=== PATIENT | male | born 1990 | race Caucasian/White ===

== ENCOUNTER 2019-10-02 08:38 | Emergency (ER) | payer OTHER, SELFPAY ==
--- NOTE | ~2019-10-02 | CT_ITS ---
EXAMINATION: CT abdomen pelvis wo con DATE: 10/02/2019 09:44 INDICATION: Left flank pain, nausea, vomiting and diarrhea. TECHNIQUE: Computed tomography (CT) of the abdomen and pelvis was performed without intravenous contr ast. Automated exposure control and iterative reconstruction technique were employed. The dose-length product was 310.49 mGy-cm. COMPARISON: None FINDINGS: Lung bases are clear. Heart size is normal. No pericardial or pleural effusion. Small sliding-type hi atal hernia. Liver, gallbladder, spleen, pancreas, bilateral adrenal glands and right kidney are norm al. 2.4 cm low-attenuation left renal cyst. 4 x 2 mm stone at the left ureterovesicular junction with mild left hydroureteronephrosis. Decompressed bladder is unremarkable. Bowels including the appendix are normal. No free intraperitoneal gas or fluid. No pathologically enlarged abdominal or pelvic lym phadenopathy. Bones are unremarkable. IMPRESSION: 1. 4 x 2 mm stone at the left ureterovesicular junction with mild left hydroureteronephrosis. Reviewed, dictated and finalized at location A. IMPRESSION: 1. 4 x 2 mm stone at the left ureterovesicular junction with mild left hydroure teronephrosis.
[2019-10-02 08:54] VITALS: BP 141/108; PULSE 74; RESP 18; TEMP 36.6; O2SAT 100
[2019-10-02] MEDS: ONDANSETRON INJ 4 MG/2 ML VIAL IV PUSH (09:07)
[2019-10-02] MEDS: KETOROLAC 30 MG/ML VIAL (*BKC) IV PUSH (09:07)
[2019-10-02] MEDS: SODIUM CHLORIDE 0.9% IV 1,000 ML 999 ML IV CONT (09:07)
[2019-10-02 09:09] LABS: Basophils Percent Auto 0.3 % (0.2-1.2); Eosinophils Absolute Auto 0.1 K/mm3 (0-0.3); Eosinophils Percent Auto 1.3 % (0-4.4); Hematocrit 49.4 % (42.0-52.0); Immature Granulocyte Absolute 0.04 K/mm3 (0.00-0.031); Immature Granulocyte Percent A 0.4 % (0-0.5); Lymphocytes Absolute Auto 2.14 K/mm3 (0.9-3.2); Lymphocytes Percent Auto 21.3 % (18.3-44.2); Mean Corpuscular HGB Conc 34.4 g/dl (32-36); Mean Corpuscular Hemoglobin 29.8 pg (26-34); Mean Corpuscular Volume 86.5 fl (80-100); Mean Platelet Volume 10.4 fl (7.4-10.4); Monocytes Absolute Auto 0.9 K/mm3 (0.1-0.6); Monocytes Percent Auto 8.6 % (2.6-8.5); Neutrophils Absolute Auto 6.9 K/mm3 (1.3-6.7); Neutrophils Percent Auto 68.1 % (45.5-73.1); Platelet Count Result 205 k/mm3 (150-375); Red Blood Count 5.71 M/mm3 (4.6-6.20); Red Cell Distribution Width 12.4 % (11.5-14.5); White Blood Count 10.1 K/mm3 (4.5-10.0)
[2019-10-02 09:13] LABS: Add Urine Microscopic? YES; Appearance Urine Clear (Clear); Bilirubin Urine Negative (Negative); Blood Urine 2+ (Negative); Color Urine Yellow (Yellow); Glucose Urine UA Negative (Negative); Ketones Urine Negative (Negative); Leukocyte Esterase Ur Negative LEU/UL (Negative); Mucus Urine Few /lpf; Nitrate Urine Negative (Negative); Protein Urine 1+ mg/dL (Negative); Squamous Epithelial Cell Urine Rare /hpf (Few); Urobilinogen Urine Negative mg/dL (<2.0); WBC Urine 0-3 /hpf
[2019-10-02 09:14] LABS: Specific Grav Ur 1.034 (1.001-1.035)
[2019-10-02 09:26] LABS: Anion Gap 11 mmol/L (8-16); Blood Urea Nitrogen 15 mg/dL (9-20); Carbon Dioxide 23 mmol/L (22-30); Chloride 105 mmol/L (98-107); Estimated CRCL calculation 100 ml/min; Estimated Glomerular Filt Rate > 60; Glucose 107 mg/dL (75-110); Sodium 139 mmol/L (137-145)
--- NOTE | 2019-10-02 10:11 | ED.BACK ---
HPI - Back Pain/Injury General Chief Complaint: Back Pain/Injury Stated Complaint: left flank pain Time Seen by Provider: 10/02/19 08:46 History of Present Illness HPI Narrative: Patient is a 29-year-old male who presents ER with left-sided flank pain. Woke this morning with the pain is been persistent ever since. Is causing him to have urinary frequency without urgency and without hematuria. Mild nausea but no vomiting. Has not had similar symptoms before. No aggravating or alleviating factors. Might have some decrease in pain when laying on his left side. Related Data Allergies Allergy/AdvReac Type Severity Reaction Status Date / Time No Known Allergies Allergy Mild Verified 11/28/07 18:11 Review of Systems Review of Systems: All systems reviewed & are unremarkable except as noted in HPI and below Constitutional: Constitutional: Denies chills and Denies fever(s) Gastrointestinal: Gastrointestinal: Reports abdominal pain, Reports nausea and Denies vomiting Genitourinary: Genitourinary: Denies hematuria, Denies oliguria, Denies dysuria and Reports urinary frequency PMFSH Past Medical History Medical History (Updated 10/02/19 @ 10:14 by Vazquez Boyle MD) Healthy adult male Surgical History Surgical History (Updated 10/02/19 @ 10:12 by Vazquez Boyle MD) No pertinent past surgical history Social History Social History (Updated 10/02/19 @ 10:13 by Vazquez Boyle MD) Alcohol use details: Social Substance use: never Exam Narrative: Exam Narrative: GENERAL: Uncomfortable-appearing, well-nourished, and in no acute distress. HEAD: Normocephalic, atraumatic. CHEST: Clear to auscultation. No respiratory distress. HEART: Regular rate and rhythm. Normal peripheral pulses. ABDOMEN: Soft, nontender, nondistended. No CVA tenderness. EXTREMITIES: Normal range of motion. No edema. SKIN: Warm, dry, no rash. NEURO: Alert and oriented x3. PSYCH: Normal mood and affect. Course Course Emergency Course: And significantly improved with Toradol. Discharge home with supportive therapy. Discussed results. Vital Signs Vital signs: Vital Signs Temperature 97.9 F 10/02/19 08:54 Pulse Rate 74 10/02/19 08:54 Respiratory Rate 18 10/02/19 08:54 Blood Pressure 141/108 H 10/02/19 08:54 Pulse Oximetry 100 10/02/19 08:54 Temperature 97.9 F 10/02/19 08:54 Pulse Rate 74 10/02/19 08:54 Respiratory Rate 18 10/02/19 08:54 Blood Pressure 141/108 H 10/02/19 08:54 Pulse Oximetry 100 10/02/19 08:54 MDM - Back Pain/Injury Lab Data Result diagrams: 10/02/19 09:02 10/02/19 09:02 Labs: Lab Results 10/02/19 10/02/19 10/02/19 Range/Units 09:02 09:02 09:02 WBC 10.1 H (4.5-10.0) K/mm3 RBC 5.71 (4.6-6.20) M/mm3 Hgb 17.0 (14.0-18.0) g/dL Hct 49.4 (42.0-52.0) % MCV 86.5 (80-100) fl MCH 29.8 (26-34) pg MCHC 34.4 (32-36) g/dl RDW 12.4 (11.5-14.5) % Plt Count 205 (150-375) k/mm3 MPV 10.4 (7.4-10.4) fl Immature Gran % (Auto) 0.4 (0-0.5) % Neut % (Auto) 68.1 (45.5-73.1) % Lymph % (Auto) 21.3 (18.3-44.2) % Isabella % (Auto) 8.6 H (2.6-8.5) % Eos % (Auto) 1.3 (0-4.4) % Baso % (Auto) 0.3 (0.2-1.2) % Lymph # (Auto) 2.14 (0.9-3.2) K/mm3 Isabella # (Auto) 0.9 H (0.1-0.6) K/mm3 Eos # (Auto) 0.1 (0-0.3) K/mm3 Baso # (Auto) 0.0 (0.0-0.1) K/mm3 Abs Immat Gran (auto) 0.04 H (0.00-0.031) K/mm3 Absolute Neuts (auto) 6.9 H (1.3-6.7) K/mm3 Absolute Nucleated RBC 0.0 (0.0-0.012) K/mm3 Nucleated RBC % 0.0 (0.0-0.2) % Sodium 139 (137-145) mmol/L Potassium 3.0 L (3.4-5.0) mmol/L Chloride 105 (98-107) mmol/L Carbon Dioxide 23 (22-30) mmol/L Anion Gap 11 (8-16) mmol/L BUN 15 (9-20) mg/dL Creatinine 1.20 (0.7-1.3) mg/dL Estim Creat Clear Calc 100 ml/min Estimated GFR > 60 (59 - ) Glucose 107 (75-110) mg/dL Ca
[2019-10-02 10:15] VITALS: BP 135/86; PULSE 70; RESP 14; O2SAT 99
== END 2019-10-02 10:22 | disposition home or self-care (01) ==
PROVIDERS: Emergency Provider Emergency Medicine; Referring Provider Family Medicine
DX: N13.2 Hydronephrosis with renal and ureteral calculous obstruction (principal)
CPT/HCPCS: 36415; 74176; 80048; 81001; 85025; 96361; 96374; 96375; 99284; J1885; J2405; J7030

== ENCOUNTER 2020-12-18 16:14 | Outpatient (CLI) | payer OTHER, SELFPAY ==
--- NOTE | ~2020-12-18 | US_ITS ---
EXAMINATION: US venous doppler LE RT EXAM DATE: 12/18/2020 16:50 INDICATION: Right calf pain. TECHNIQUE: Multiple grayscale, color flow and Doppler images of the right lower extremity deep venous system were obtained and reviewed. There is no prior study for comparison. FINDINGS: The right common femoral, femoral and profunda veins demonstrate normal color flow, respira tory variation, augmentation and compressibility. Compressibility, color flow confirmed within the r ight popliteal, posterior tibial, peroneal, and greater saphenous veins. IMPRESSION: 1. No right lower extremity deep venous thrombosis. Reviewed, dictated and finalized at location B.
== END 2020-12-18 16:15 | disposition home or self-care (01) ==
DX: M79.661 Pain in right lower leg (principal); S82.51XA Displaced fracture of medial malleolus of right tibia, initial encounter for closed fracture
CPT/HCPCS: 93971

== ENCOUNTER 2024-05-07 16:27 | Emergency (ER) | payer OTHER, SELFPAY ==
--- NOTE | 2024-05-07 16:29 | ED_ITS ---
HPI - Eye Problem General Chief complaint: Eye Problems Stated complaint: eye redness Time Seen by Provider: 05/07/24 16:38 Source: patient, RN notes reviewed and old records reviewed Mode of arrival: ambulatory Limitations: no limitations History of Present Illness HPI Narrative: 34-year-old male presents to the [facility] with right lateral eye redness, itching. States that started yesterday. Normally wears contacts. Is currently not wearing contacts today. Denies any blurry vision or change in vision. Denies any Direct trauma. Unsure of last Tdap, declining at this time. States he has an appointment with his primary care provider (05/20) and will update if needed at that time. Onset (ago): day(s) (1) Related Data Allergies Allergy/AdvReac Type Severity Reaction Status Date / Time No Known Allergies Allergy Mild Verified 05/07/24 16:38 Review of Systems 2 Review of Systems: All systems reviewed & are unremarkable except as noted in HPI and below Constitutional: Constitutional: Reports no additional constitutional complaints Eyes: Eyes: Reports as per HPI ENT: Reports system reviewed and no additional complaints, except as documented Cardiovascular: Cardiovascular: Reports no additional cardiovascular complaints, Denies chest pain and Denies dyspnea Respiratory: Respiratory: Reports no additional respiratory complaints, Denies chest congestion, Denies cough and Denies dyspnea Musculoskeletal: Musculoskeletal: Reports no additional musculoskeletal complaints Integumentary/Breasts: Skin/Breast: Reports system reviewed and no additional complaints, except as docu PMFSH Past Medical History Medical History Healthy adult male Surgical History Surgical History No pertinent past surgical history Social History Social History Alcohol use details: Social Substance use: never Comments At the time of my signature, I reviewed and agree with the nursing past medical, surgical, social, and family history. There is no relevant family history pertinent to the patient complaint. Exam 2 Const: General: cooperative, healthy appearing, comfortable, no acute distress, well developed, alert and well nourished Nutritional Appearance: w ell nourished Orientation/consciousness: patient oriented x3 Limitations: no limitations HENMT: Head: normal to inspection Ears: hearing grossly normal bilaterally, external ears normal, TM's normal bilaterally, EAC's normal, mastoids normal and no periauricular adenopathy Face/Nose/Sinus: Normal external nose present and Normal nares present Mouth: Yes Normal oral and palatal mucosa present, Yes lip normal, Yes tongue normal and Yes moist mucous membranes Eyes: General: appearance normal, both eyes and all related structures A lignment and Position: alignment normal Eyelids: eyelids normal Cornea: c orneas abnormal on the right fluorescein used and abrasion; no contact lens present, without edema and with no foreign body noted and fluorescein used Eyes/upper lids images: 1. abrasion Neck: Neck: normal visual inspection, full ROM, no lymphadenopathy and no meningeal signs Chest: Chest palpation & inspection: normal inspection of the chest Resp: Effort & Inspection: normal respiratory effort and able to speak in complete sentences Cardio: Rate: regular rate Skin: General skin exam: normal color and no rashes or lesions noted Neuro: General: patient oriented x3, gait normal, moves all extremities and no meningeal signs Cognition (Neuro): normal cognition Speech: normal speech Gait exam (Neuro): Normal gait present Extrem: General: normal to inspection, full ROM, capillary refill normal and normal gait Psych: Appearance: grossly normal and well kempt Mental Status: mental status grossly normal Speech and movement: Normal speech and movement present and Clear speech present Affect: normal affect Attitude: cooperative Course Course Level of Care: Express Care Visit Vital Signs Vital signs: Vital Signs Temperature 98.0 F 05/07/24 16:39 Pulse Rate 74 05/07/24 16:39 Respiratory Rate 18 05/07/24 16:39 Blood Pressure 134/81 05/07/24 16:39 Pulse Oximetry 96 05/07/24 16:39 Oxygen Delivery Room Air 05/07/24 16:39 Temperature 98.0 F 05/07/24 16:39 Pulse Rate 74 05/07/24 16:39 Respiratory Rate 18 05/07/24 16:39 Blood Pressure 134/81 05/07/24 16:39 Pulse Oximetry 96 05/07/24 16:39 Oxygen Delivery Room Air 05/07/24 16:39 Reviewed MDM - Eye Problem MDM Narrative Medical decision making narrative: Patient sitting comfortably in exam room. Nontoxic, vitals stable. Patient with with a red eye, itching. Wood's lamp exam done, shows post semi circular abrasion. Patient does normally wear contacts, instructed not to wear until cleared by Ophthalmology. Will cover with Cipro drops. Patient is appropriate for outpatient treatment with close follow-up. Reports that he will see ophthalmology. States that he will follow-up with primary care provider on the and check tetanus shot. Discharge instructions reviewed with patient, as well as provided in writing per nursing staff. The instructions also include specific and strict return/GO TO THE ER as well as f/u information. All questions have been answered, and the patient deny any further questions with discharge and discharge plan. Some parts of this dictation were generated by voice recognition software and may contain typographical and/or grammatical inaccuracies. Differential Diagnosis Differential diagnosis: Likely corneal abrasion, conjunctivitis and corneal ulcer Critical Care Time Critical Care Time Critical Care Time: No Discharge Plan Discharge Clinical Impression: Corneal abrasion Patient Disposition: Home, Self-Care Condition: Stable Instructions: Antibiotic Form, Corneal Abrasion (DC) Additional Instructions: follow-up with your primary care provider's already scheduled. Please ask about a tetanus shot. If you are out of date please update. Apply a cool, damp compress to your affected eye. Be sure to use a clean cloth each time to avoid spreading the infection. Stop wearing contact lenses until you are cleared by eye doctor. use prescription eye drops as prescribed Maintain good hygiene and only touch your eyes with freshly washed hands. You should follow-up with an eye doctor within the next 72 hours [facility]: [place]- [phone] [facility] [phone] [facility] [phone] [place]: [facility] [phone] or [phone] [facility] [phone] [facility] [phone] [facility] [phone] [facility]- [phone] Patient Language: Turkish Prescriptions: New ciprofloxacin HCl 0.3 % drops See Rx Instructions EACH EYE .COMPLEX Qty: 2.5 0RF Rx Instructions: put 1 drop in right eye every 2hr up to 8 times/day x2days; then 4 times/day x5days Follow-up/Referrals: UNKNOWN,DOCTOR [Non-Staff] - Time of Disposition: 16:50
--- OUTSIDE RECORDS SUMMARY | 2024-05-07 16:29 | XMS_ITS | Clinical Summary ---
Author Organization [address] Address [address] [place] [id number] Care Team Providers Care Office Inspector Name Role Phone Alcides Figueredo MD Primary Care Provider [phone] Ervin Caban MD Unavailable [phone] Allergies No known active allergies Medications No known medications Active Problems No known active problems Resolved Problems Problem Noted Date Diagnosed Date Resolved Date Closed displaced fracture of medial malleolus of right tibia with routine healing 12/08/202011/24 Surgical History Surgery Date Site/Laterality Comments ORIF ANKLE FRACTURE 12/12/2020 Right Done at [facility] Social History Tobacco Use Types Packs/Day Years Used Date Smoking Tobacco: Some Days Smokeless Tobacco: Never Personal Safety Answer Date Recorded Getting School Help Needed Not on file 04/21 Sex and Gender Information Value Date Recorded Sex Assigned at Not on file 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 Gender Identity Not on file Sexual Orientation Not on file Obstetrics History Last Filed Vital Signs Vital Sign Reading Time Taken Comments Blood Pressure - - Pulse - - Temperature - - Respiratory Rate - - Oxygen Saturation - - Inhaled Oxygen Concentration - - Weight 108.9 kg (240 lb) 11/30/2021 11:21 AM CDT Height 193 cm (6' 4 ) 11/30/2021 11:21 AM CDT Body Mass Index 29.21 11/30/2021 11:21 AM CDT Plan of Treatment Health Maintenance Due Date Last Done Comments Depression Screening 1991 Hepatitis C Screening 1991 DTaP/Tdap/Td Vaccine (1 - Tdap) 2002 Varicella Vaccines (1 of 2 - 13+ 2-dose series) 2004 Hepatitis B Screening 2009 Regular Well Visit/Exam 18-64 2009 Pneumococcal vaccine <65 (1 of 2 - PCV) 2010 Covid-19 Vaccine (3 - 2023-2 5 season) 2023 06/19/2020, 05/23/2020 Influenza Vaccine (#1) 2023 HPV Vaccines Aged Out No longer eligi ble based on patient's age to complete this topic Insurance [facility] CHOICE PLUS [facility] CHOICE PLUS [facility] CHOICE PLUS Care Teams Office Inspector Relationship Specialty Start Date End Date Alcides Figueredo MD PCP - General Family Medicine 12/06/20 Ervin Caban MD [phone] [address] Surgeon Orthopedic Surgery 12/07/20
--- OUTSIDE RECORDS SUMMARY | 2024-05-07 16:29 | XMS_ITS | Referral Summary ---
Author Organization [address] Address [address] [place] [id number] Care Team Providers Care Tax Compliance Agent Name Role Phone Alcides Figueredo MD Primary Care Provider [phone] Ervin Caban MD Unavailable [phone] Allergies No known active allergies Medications No known medications Active Problems No known active problems Resolved Problems Problem Noted Date Diagnosed Date Resolved Date Closed displaced fracture of medial malleolus of right tibia with routine healing 12/08/202011/24 Social History Tobacco Use Types Packs/Day Years Used Date Smoking Tobacco: Some Days Smokeless Tobacco: Never Personal Safety Answer Date Recorded Getting School Help Needed Not on file 04/21 Sex and Gender Information Value Date Recorded Sex Assigned at Not on file 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 Gender Identity Not on file Sexual Orientation Not on file Last Filed Vital Signs Vital Sign Reading Time Taken Comments Blood Pressure - - Pulse - - Temperature - - Respiratory Rate - - Oxygen Saturation - - Inhaled Oxygen Concentration - - Weight 108.9 kg (240 lb) 11/30/2021 11:21 AM CDT Height 193 cm (6' 4 ) 11/30/2021 11:21 AM CDT Body Mass Index 29.21 11/30/2021 11:21 AM CDT Plan of Treatment [place] [id number] [facility] CHOICE PLUS [facility] HMO/PPO Address[facility] [address] [place] [address] [facility] Address: [address] [place] [address] CHOICE PLUS [facility] H[facility]/PPO Address: [address] [place] [address] Care Teams Tax Compliance Agent Relationship Specialty Start Date End Date Alcides Figueredo MD PCP - General Family Medicine 12/06/20 Ervin Caban MD [phone] [facility] [address] [place] [address] Surgeon Orthopedic Surgery 12/07/20
[2024-05-07 16:39] VITALS: BP 134/81; PULSE 74; RESP 18; TEMP 36.7; O2SAT 96
[2024-05-07] MEDS: TETRACAINE HCL 0.5% OPHTH SOLN 4 ML BTL 1 DROP LEFT EYE (16:41)
[2024-05-07] MEDS: FLUORESCEIN SOD 1 MG/STRIP EACH EYE (16:41)
== END 2024-05-07 16:54 | disposition home or self-care (01) ==
PROVIDERS: Emergency Provider Nurse Practitioner; PCP Family Medicine
DX: S05.01XA Injury of conjunctiva and corneal abrasion without foreign body, right eye, initial encounter (principal); X58.XXXA Exposure to other specified factors, initial encounter
CPT/HCPCS: 99213; G0463